=== PATIENT | female | born 1955 | race Caucasian/White ===

== ENCOUNTER 2019-03-11 05:39 | Outpatient (CLI) | payer BC ==
[~2019-03-11] VITALS: Ht 175.3 cm; Wt 76.2 kg
== END 2019-03-11 10:42 | disposition home or self-care (01) ==
LOC: PREOP 05:39
PROVIDERS: ATTEND Surgery
DX: Z01.818 Encounter for other preprocedural examination (principal)

== ENCOUNTER 2019-03-19 07:04 | Day surgery (SDC) | payer BC ==
[2019-03-19] VITALS (11 sets, daily range): BP systolic 132–165; BP diastolic 69–97
[~2019-03-19] VITALS: Ht 175.3 cm; Wt 78.3 kg
[2019-03-19] MEDS ORDERED: ceFAZolin 2 GM/50 ML NS 50 ML IV ONE (07:30)
[2019-03-19] MEDS ORDERED: proPOfol 200 MG/20 ML (DIPRIVAN) VIAL IV ONE (07:35)
[2019-03-19] MEDS ORDERED: ONDANSETRON 4 MG/2 ML (SDV) Z0FRAN ONE (07:35)
[2019-03-19] MEDS ORDERED: LIDOCAINE PF 2% 5 ML (XYLOCAINE) VIAL ONE (07:35)
[2019-03-19] MEDS ORDERED: ROCURONIUM 10 MG/ML 5 ML SYRINGE IV ONE (07:35)
[2019-03-19] MEDS ORDERED: fentaNYL INJECTION 100 MCG/2 ML AMP ONE (07:36)
[2019-03-19] MEDS ORDERED: MIDAZOLAM 2 MG/2 ML (VERSED) VIAL ONE (07:36)
[2019-03-19] MEDS ORDERED: SEVOFLURANE (ULTANE) 15 ML INHAL SOLN ONE ×5 (07:40→10:10)
[2019-03-19] MEDS ORDERED: BUP/EPI 0.5% 1:200,000 (SENSORCAINE) 30 ML VIAL ONE (07:43)
[2019-03-19] MEDS ORDERED: CATHETER FLUSH 10 ML SYR IV PRN (08:00)
[2019-03-19] MEDS: LACTATED RINGERS 1,000 ML IV PRN ×2 (08:10→09:45)
[2019-03-19 08:25] LABS: BASOPHILS % (AUTO) 1 % (0-10); EOSINOPHILS # (AUTO) 0.1 10^3/uL (0.0-0.3); EOSINOPHILS % (AUTO) 1 % (0-10); HEMATOCRIT 41 % (35-52); HEMOGLOBIN 13.9 G/DL (11.5-16.0); LYMPHOCYTES % (AUTO) 18 % (12-44); MEAN CORPUSCULAR HEMOGLOBIN 33 PG (25-34); MEAN CORPUSCULAR HGB CONC 34 G/DL (32-36); MEAN CORPUSCULAR VOLUME 97 FL (80-99); MEAN PLATELET VOLUME 11.5 FL (7.4-10.4); MONOCYTES # (AUTO) 0.6 X 10^3 (0.0-1.0); MONOCYTES % (AUTO) 12 % (0-12); NEUTROPHILS # (AUTO) 3.7 X 10^3 (1.8-7.8); NEUTROPHILS % (AUTO) 69 % (42-75); PLATELET COUNT 234 10^3/uL (130-400); RED CELL DISTRIBUTION WIDTH 13.3 % (10.0-14.5); WHITE BLOOD COUNT 5.4 10^3/uL (4.3-11.0)
--- NOTE | 2019-03-19 08:33 | Progress Note-Pre Operative ---
Pre-Operative Progress Note H&P Reviewed The H&P was reviewed, patient examined and no changes noted. Date Seen by Provider: March 19, 2019 Time Seen by Provider: 08:30 Date H&P Reviewed: March 19, 2019 Time H&P Reviewed: 08:25 Pre-Operative Diagnosis: Symptomatic left inguinal and Umbilical hernia DIPAK CHRISTIANSON APRN March 19, 2019 08:33
[2019-03-19] MEDS ORDERED: HYDR-3816 PO (08:36)
--- NOTE | 2019-03-19 08:36 | Discharge Inst-Surgical ---
D/C Lap Instructions-KIDO New, Converted, or Re-Newed RX: RX on Chart Follow Up Appt in 2 weeks Activity as tolerated No driving for 24 hours No driving while on pain medications Incentive Spirometry use every 2 hours while awake Regular Diet Symptoms to Report: Fever over 101 degree F, Nausea/Vomiting Infection Signs and Symptoms to report: Increased redness, Foul odor of wound, Increased drainage Bathing instructions: May shower Operative Area Clean/Dry; Keep incision clean/dry If any problems/questions: Contact your physician or go to Emergency Room DIPAK CHRISTIANSON APRN March 19, 2019 08:36
[2019-03-19] MEDS ORDERED: ACETAMINOPHEN 325 MG TABLET PO PRN (08:45)
[2019-03-19] MEDS ORDERED: morphine INJ 10 MG/ML 1ML (SYR OR VIAL) IVP PRN (08:45)
[2019-03-19] MEDS ORDERED: HYDROcodone/APAP 5 MG/325 MG (LORTAB) TAB PO ONE (08:45)
[2019-03-19] MEDS ORDERED: ONDANSETRON 4 MG/2 ML (SDV) Z0FRAN IVP PRN ×2 (08:45→10:30)
[2019-03-19] MEDS ORDERED: DEXAMETHASONE 10 MG/ML (DECADRON) 1 ML VIAL ONE (08:56)
[2019-03-19] MEDS ORDERED: GLYCOPYRROLATE 0.2 MG/ML (ROBINUL) 2 ML VIAL ONE (09:57)
[2019-03-19] MEDS ORDERED: NEOSTIGMINE 1 MG/ML 5 ML SYRINGE ONE (09:57)
--- NOTE | 2019-03-19 10:08 | Progress Note-Post Operative ---
Post-Operative Progess Note Surgeon (s)/Professional System Administrator (s) Surgeon PRIETO GOODE MD Professional System Administrator: cristina mays ADVERTISING ASSISTANT MANAGER Pre-Operative Diagnosis Symptomatic left inguinal and Umbilical hernia Post-Operative Diagnosis same(reducible) Procedure & Operative Findings Date of Procedure 03/19/19 Procedure Performed/Findings laparoscopic left inguinal and umbilical hernia repair with mesh. Anesthesia Type GET Estimated Blood Loss Estimated blood loss (mL): minimal Specimens/Packing Specimens Removed none PRIETO GOODE MD March 19, 2019 10:08
[2019-03-19] MEDS ORDERED: KETOROLAC 30 MG/ML VIAL ONE (10:27)
[2019-03-19] MEDS ORDERED: MEPERIDINE (DEMEROL) INJ 50 MG/ML IVP ONE (10:30)
[2019-03-19] MEDS ORDERED: PROMETHAZINE INJ 25 MG/ML (PHENERGAN) AMP IVP ONE (10:30)
[2019-03-19] MEDS ORDERED: morphine INJ 10 MG/ML 1ML (SYR OR VIAL) IVP ONE (10:30)
[2019-03-19] MEDS ORDERED: HYDROmorphone 2 MG/ML VIAL (DILAUDID) IV ONE (10:30)
[2019-03-19] MEDS ORDERED: KETOROLAC 30 MG/ML VIAL IVP ONE (10:45)
--- NOTE | 2019-03-19 13:22 | OPERATIVE REPORT ---
DATE OF SERVICE: 03/19/2019 PREOPERATIVE DIAGNOSES: Symptomatic reducible left inguinal hernia and umbilical hernia. POSTOPERATIVE DIAGNOSES: Symptomatic reducible left inguinal hernia and umbilical hernia. PROCEDURES: Laparoscopic left inguinal and umbilical hernia repair with mesh. SURGEON: Prieto Goode MD TECHNICAL SOLUTIONS DIRECTOR: Sanchez Patel APRN. ANESTHESIA: General endotracheal. ESTIMATED BLOOD LOSS: Minimal. FINDINGS: Reducible left direct inguinal hernia, small umbilical hernia, no right inguinal hernia component. DISPOSITION: The patient tolerated the procedure well. INDICATIONS: The patient is a 63-year-old female with two symptomatic lesions. She has had a left inguinal hernia for greater than two years, which was initially tolerable; however, over the time has grown larger in size and become more painful. She has also developed pain in the umbilical region. A CT scan was performed, which did show a small umbilical hernia. She states that this has also become more painful over time. She is otherwise doing well and having normal bowel movements and tolerating a regular diet. DESCRIPTION OF PROCEDURE: The patient was brought to the operating room, laid supine on the table. After adequate IV pain and sedative medications and general endotracheal intubation, the abdomen was prepped and draped in standard surgical fashion. A 0.5% Marcaine with epinephrine was used to anesthetize the overlying skin in the infraumbilical rim and a crescent shaped skin incision was made using 15 blade. The abdominal wall was retracted anteriorly using a sharp towel clamp and Veress needle was placed through the hernia defect with a low opening pressure of 0 mmHg and the abdomen was insufflated to 15 mmHg pressure. The Veress needle was removed and a 10 mm Xcel trocar was placed followed by a 10 mm 45-degree angle laparoscope visualizing the peritoneal cavity. A 4-quadrant abdominal exploration was performed. There was a left indirect inguinal hernia with only fat within the hernia sac. There was no right inguinal hernia component. What was visualized, the omentum, small bowel and colon were normal. Under direct visualization, we then proceeded to place bilateral 5 mm ports under direct visualization after the skin and peritoneal lining were anesthetized using 0.5% Marcaine with epinephrine and transverse skin incision was made using a 15 blade. The patient was then placed in Trendelenburg position and the omental lining was then opened starting laterally towards the conjoint tendon and inguinal ligament using a Sonicision. We then proceeded medially towards the conjoint tendon. We then proceeded with inferior dissection encompassing the hernia sac. The vasculature was identified and preserved. Good hemostasis was observed and a 3DMax polypropylene mesh was placed into the defect and tacked to Demar's ligament medially and the conjoint tendon and inguinal ligament laterally. The peritoneal lining was then placed entirely over the mesh and a few absorbable tacks placed to keep this in place. The 10 mm port was removed and a 5 mm camera was then placed through one of the 5 mm ports. The preperitoneal fat around the umbilical hernia was then dissected using a Sonicision. A medium size 6.4 cm diameter coated polypropylene mesh was then placed through the defect opening under direct visualization. The hernia defect was only approximately 1.5 cm in size. We then proceeded to place transfascial sutures concentrically around the mesh using 0 Prolene sutures. Good hemostasis was observed. Subcutaneous tissue was then reapproximated using 3-0 Vicryl interrupted sutures and the abdomen was desufflated and remaining ports removed. All skin incisions were closed using 4-0 Monocryl running subcuticular sutures. Wounds were then cleaned and covered with Dermabond. The patient tolerated the procedure well. We will start IV and oral pain medication as well as a clear liquid diet. Once she is tolerating clears and has good pain control with oral pain medications, ambulating well, we will discharge her home. Job ID: [id number] DocumentID: [id number] Dictated Date: 03/19/2019 10:23:04 Office Executive Date: 03/19/2019 13:21:26 Dictated By: PRIETO GOODE MD
--- NOTE | 2019-03-19 16:25 | Anesthesia-General Post-Op ---
General Patient Condition Mental Status/LOC: Same as Preop Cardiovascular: Satisfactory Nausea/Vomiting: Absent Respiratory: Satisfactory Pain: Controlled Complications: Absent Post Op Complications Complications None Follow Up Care/Instructions Patient Instructions None needed. Anesthesia/Patient Condition Patient Condition Patient was seen after the procedure this morning and she was doing well, no complaints, stable vital signs, no apparent adverse anesthesia problems. DOMINIC ELKINS DO March 19, 2019 16:25
== END 2019-03-19 12:30 | disposition home or self-care (01) ==
LOC: SDC 07:04
PROVIDERS: ATTEND Surgery
DX: K40.90 Unilateral inguinal hernia, without obstruction or gangrene, not specified as recurrent (principal); K42.0 Umbilical hernia with obstruction, without gangrene; Z87.891 Personal history of nicotine dependence
CPT/HCPCS: 36415; 85025; 87081; 94664

== ENCOUNTER 2022-02-15 16:36 | Emergency (ER) | payer BC, MEDICARE ==
[~2022-02-15] VITALS: Ht 175 cm; Wt 76.0 kg
[~2022-02-15 16:36] MED LIST: HYDR-34 PO
--- NOTE | 2022-02-15 17:00 | ED GI ---
General Chief Complaint: Abdominal/GI Problems Stated Complaint: PAIN,BLOATING Nursing Triage Note: PT STATES ABD PAIN AND BLOATING FOR A FEW WEEKS, HERNIA SURGERY A FEW YEARS AGO. DX WITH SHINGLES YESTERDAY. NORMAL BM TODAY, NO URINARY ISSUES, EATING WELL. Source of Information: Patient Exam Limitations: No Limitations History of Present Illness Date Seen by Provider: Feb 15, 2022 Time Seen by Provider: 16:58 Initial Comments n To ER by private vehicle with reports of abdominal pain and bloating for a few weeks. She had a umbilical and left inguinal hernia repair done here by Dr. GOODE about 3 years ago. The past couple of weeks she is had some right-sided periumbilical swelling and tenderness underneath the right rib cage. She was seen at [facility] yesterday at the walk-in clinic. She was diagnosed w ith herpes zoster of the right side of the abdominal wall, she was given acyclovir. She was offered prednisone and hydrocodone for pain but declined as she states that she does not like to take any medications. She states she does not really have a doctor. Normal bowel movements normal appetite no vomiting no fevers. Timing/Duration: Getting Worse, Intermittent Severity/Quality: Moderate Location: RUQ, RLQ, Periumbilical Radiation: No Radiation Activities at Onset: None Allergies and Home Medications Allergies Coded Allergies: No Known Drug Allergies (Unverified , 03/11/19) Patient Home Medication List Home Medication List Reviewed: Yes Hydrocodone Bit/Acetaminophen (HYDROcodone/APAP 7.5/325 TAB) 1 Each Tablet, 1-2 TAB PO Q4H Prescribed by: DIPAK CHRISTIANSON on 03/19/19 0836 Review of Systems Review of Systems Constitutional: see HPI EENTM: No Symptoms Reported Respiratory: No Symptoms Reported Cardiovascular: No Symptoms Reported Gastrointestinal: See HPI, Abdominal Pain Genitourinary: No Symptoms Reported Musculoskeletal: no symptoms reported Skin: see HPI, lesions, rash, other (There is a herpes zoster appearing rash to the right side of the torso that extends from the right flank around the same dermatome to the right anterior abdomen. This is a small cluster of bright red erythematous papules/vesicles that is tender to touch. However she does have notable bulging of the abdominal wall at the right periumbilical location.) Psychiatric/Neurological: No Symptoms Reported Endocrine: No Symptoms Reported Hematologic/Lymphatic: No Symptoms Reported Past Rtukfda-Mrfhpo-Jywlbp Hx Patient Social History Tobacco Use?: Yes Tobacco type used: Cigarettes Smoking Status: Former Smoker Substance use?: No Alcohol Use?: No Immunizations Up To Date Tetanus Booster (TDap): Unknown PED Vaccines UTD: No Seasonal Allergies Seasonal Allergies: Yes Past Medical History Surgery/Hospitalization HX: HERNIA Surgeries: No Respiratory: No Cardiac: No ("HEART FLUTTERING") Neurological: No Sexually Transmitted Disease: No HIV/AIDS: No Genitourinary: No Gastrointestinal: No Musculoskeletal: Yes Back Injury, Chronic Back Pain Endocrine: No HEENT: Yes (GLASSES) Loss of Vision: Bilateral Hearing Impairment: Denies Cancer: Yes (PRE-CANCEROUS CERVIX) Psychosocial: Yes Anxiety Integumentary: No Blood Disorders: No Adverse Reaction/Blood Tranf: No (N/A) Physical Exam Vital Signs Vital Signs - First Documented 02/15/22 16:43 Temp 36.6 Pulse 85 Resp 20 B/P (MAP) 198/125 (149) Pulse Ox 98 O2 Delivery Room Air Capillary Refill : Less Than 3 Seconds Height/Weight/BMI Height: 5'9.00" Weight: 172lbs. 9.0oz. 78.787480ci; 24.00 BMI Method: General Appearance: WD/WN, no apparent distress HEENT: PERRL/EOMI, normal ENT inspection Neck: non-tender, full range of motion Respiratory: no respiratory distress, no accessory muscle use Gastrointestinal: normal bowel sounds, soft, tenderness (Minimal tenderness at the defect, significant tenderness over the erythematous vesicles.) Neurologic/Psychiatric: alert, normal mood/affect, oriented x 3 Skin: normal color, warm/dry, other (Clustered erythematous vesicles/papules about the right flank wrapping around to the right anterior abdomen tender to touch does not cross midline. There is a palpable defect in the abdominal wall at the right supraumbilical region. Overlying skin is normal. Bowel sounds are normal.) Progress/Results/Core Measures Results/Orders Lab Results Laboratory Tests Test 02/15/22 16:55 02/15/22 17:26 Range/Units White Blood Count 6.2 4.3-11.0 10^3/uL Red Blood Count 4.35 3.80-5.11 10^6/uL Hemoglobin 14.3 11.5-16.0 g/dL Hematocrit 43 35-52 % Mean Corpuscular Volume 100 H 80-99 fL Mean Corpuscular Hemoglobin 33 25-34 pg Mean Corpuscular Hemoglobin Concent 33 32-36 g/dL Red Cell Distribution Width 13.2 10.0-14.5 % Platelet Count 235 130-400 10^3/uL Mean Platelet Volume 11.7 9.0-12.2 fL Immature Granulocyte % (Auto) 0 % Neutrophils (%) (Auto) 63 42-75 % Lymphocytes (%) (Auto) 23 12-44 % Monocytes (%) (Auto) 12 0-12 % Eosinophils (%) (Auto) 1 0-10 % Basophils (%) (Auto) 1 0-10 % Neutrophils # (Auto) 3.9 1.8-7.8 10^3/uL Lymphocytes # (Auto) 1.4 1.0-4.0 10^3/uL Monocytes # (Auto) 0.7 0.0-1.0 10^3/uL Eosinophils # (Auto) 0.1 0.0-0.3 10^3/uL Basophils # (Auto) 0.1 0.0-0.1 10^3/uL Immature Granulocyte # (Auto) 0.0 0.0-0.1 10^3/uL Sodium Level 142 135-145 MMOL/L Potassium Level 4.1 3.6-5.0 MMOL/L Chloride Level 107 98-107 MMOL/L Carbon Dioxide Level 24 21-32 MMOL/L Anion Gap 11 5-14 MMOL/L Blood Urea Nitrogen 13 7-18 MG/DL Creatinine 0.92 0.60-1.30 MG/DL Estimat Glomerular Filtration Rate 69 BUN/Creatinine Ratio 14 Glucose Level 94 70-105 MG/DL Calcium Level 9.9 8.5-10.1 MG/DL Corrected Calcium 9.7 8.5-10.1 MG/DL Total Bilirubin 0.4 0.1-1.0 MG/DL Aspartate Amino Transf (AST/SGOT) 18 5-34 U/L Alanine Aminotransferase (ALT/SGPT) 19 0-55 U/L Alkaline Phosphatase 66 40-136 U/L Total Protein 7.1 6.4-8.2 GM/DL Albumin 4.3 3.2-4.5 GM/DL Lipase 45 8-78 U/L Urine Color YELLOW Urine Clarity CLEAR Urine pH 7.0 5-9 Urine Specific [place] 1.015 L 1.016-1.022 Urine Protein NEGATIVE NEGATIVE Urine Glucose (UA) NEGATIVE NEGATIVE Urine Ketones NEGATIVE NEGATIVE Urine Nitrite NEGATIVE NEGATIVE Urine Bilirubin NEGATIVE NEGATIVE Urine Urobilinogen 0.2 < = 1.0 MG/DL Urine Leukocyte Esterase 1+ H NEGATIVE Urine RBC (Auto) NEGATIVE NEGATIVE Urine RBC NONE /HPF Urine WBC 2-5 /HPF Urine Squamous Epithelial Cells 0-2 /HPF Urine Crystals NONE /LPF Urine Bacteria MODERATE H /HPF Urine Casts NONE /LPF Urine Mucus NEGATIVE /LPF Urine Culture Indicated YES My Orders Orders - SELMA RUBI ELECTRICIAN SHIP Lipase (02/15/22 16:56) Ua Culture If Indicated (02/15/22 16:56) Cbc With Automated Diff (02/15/22 16:56) Comprehensive Metabolic Panel (02/15/22 16:56) Ed Iv/Invasive Line Start (02/15/22 16:56) Ct Abdomen/Pelvis W (02/15/22 16:56) Iohexol Injection (Omnipaque 350 Mg/Ml 1 (02/15/22 17:30) Received Contrast (Hold Metformin- Contr (02/15/22 17:30) Sodium Chloride Flush (Catheter Flush Sy (02/15/22 17:30) Ns (Ivpb) (Sodium Chloride 0.9% Ivpb Bag (02/15/22 17:30) Urine Culture (02/15/22 17:26) Medications Given in ED Current Medications Medications Dose Ordered Sig/Varun Route Start Time Stop Time Status Last Admin Dose Admin Iohexol 100 ml ONCE ONCE IV 02/15/22 17:30 02/15/22 17:31 DC 02/15/22 17:53 97 ML Sodium Chloride 10 ml NEEDED PRN IV 02/15/22 17:30 02/15/22 17:53 10 ML Sodium Chloride 100 ml ONCE ONCE IV 02/15/22 17:30 02/15/22 17:31 DC 02/15/22 17:53 80 ML Vital Signs/I&O 02/15/22 16:43 Temp 36.6 Pulse 85 Resp 20 B/P (MAP) 198/125 (149) Pulse Ox 98 O2 Delivery Room Air Blood Pressure Mean: 149 Departure Communication (Admissions) Family Conversation NAME: KRISTEL DALEY [facility] REC#: [id number] PT STATUS: REG ER : 1955 PHYSICIAN: SELMA RUBI ELECTRICIAN [employer] ADMIT DATE: 02/15/22/ER Signed Date of Exam:02/15/22 CT ABDOMEN/PELVIS W PROCEDURE: CT abdomen and pelvis with contrast. TECHNIQUE: Multiple contiguous axial images were obtained through the abdomen and pelvis after administration of intravenous contrast. Auto Exposure Controls were utilized during the CT exam to meet ALARA standards for radiation dose reduction. All CT scans use one or more of the following dose optimizing techniques: automated exposure control, MA and/or KvP adjustment based on patient size and exam type or iterative reconstruction. INDICATION: Periumbilical swelling. FINDINGS: The heart size is normal. The lung bases are clear. There is a benign cyst in the liver. Gallbladder is unremarkable. There is no biliary ductal dilatation. Spleen is normal. The pancreas and adrenal glands are unremarkable. Kidneys are normal in appearance. Aorta is nonaneurysmal. There is a midline anterior abdominal wall hernia containing some omental fat. The bowel gas pattern is nonspecific. There is no free air. There is no ascites. There is no focal inflammatory changes. Bladder is normal. There is no pelvic mass, adenopathy or free fluid. There are degenerative changes in the spine. There is a chronic appearing L1 compression fracture. IMPRESSION: 1. Benign hepatic cyst. 2. Midline anterior abdominal wall hernia containing some omental fat. 3. Chronic appearing L1 compression fracture. If there is clinical concern that this may be acute, further evaluation with MRI should be considered. 4. No other acute abnormality in the abdomen or pelvis. Dictated by: Dictated on workstation # [id number] Dict: 02/15/221758 Trans: 02/15/221805 [facility] [id number] Interpreted by: PARRISH REEVES MD Electronically signed by: PARRISH REEVES MD 02/15/221805 I did again offer her pain medicine for the shingles here as well as a prescription for prednisone to help reduce the possibility of developing p ostherpetic neuralgia. She again states that she does not like medications and wants nothing more than the acyclovir. 185-she is still hypertensive at about 185 or 91. She is anxious about this does not have a primary care provider. We will start her on some lisinopril 20 mg. Impression Primary Impression: Umbilical hernia Additional Impressions: Shingles Hypertension Disposition: HOME, SELF-CARE Condition: Stable Departure-Patient Inst. Decision time for Depature: 18:24 Referrals: [facility] [place] (PCP/Family) Primary Care Physician CARLOS WESTON BRETT D DO KIDO, TAKAAKI MD Patient Instructions: Abdominal Wall Hernias, Shingles (DC), Medicines for High Blood Pressure Add. Discharge Instructions: 1. Call a surgeon of your choosing later next week to discuss surgical repair of the umbilical hernia. Continue the acyclovir for the shingles. Return to ER for any concerns. Scripts Lisinopril (Lisinopril) 20 Mg Tablet 20 MG PO DAILY, #30 TAB Prov: SELMA RUBI APRN 02/15/22 SELMA RUBI APRN Feb 15, 2022 17:00
[2022-02-15 17:12] LABS: BASOPHILS # (AUTO) 0.1 10^3/uL (0.0-0.1); BASOPHILS % (AUTO) 1 % (0-10); EOSINOPHILS # (AUTO) 0.1 10^3/uL (0.0-0.3); EOSINOPHILS % (AUTO) 1 % (0-10); HEMATOCRIT 43 % (35-52); HEMOGLOBIN 14.3 g/dL (11.5-16.0); LYMPHOCYTES # (AUTO) 1.4 10^3/uL (1.0-4.0); LYMPHOCYTES % (AUTO) 23 % (12-44); MEAN CORPUSCULAR HEMOGLOBIN 33 pg (25-34); MEAN CORPUSCULAR HGB CONC 33 g/dL (32-36); MEAN CORPUSCULAR VOLUME 100 fL (80-99); MEAN PLATELET VOLUME 11.7 fL (9.0-12.2); MONOCYTES # (AUTO) 0.7 10^3/uL (0.0-1.0); MONOCYTES % (AUTO) 12 % (0-12); NEUTROPHILS # (AUTO) 3.9 10^3/uL (1.8-7.8); NEUTROPHILS % (AUTO) 63 % (42-75); PLATELET COUNT 235 10^3/uL (130-400); WHITE BLOOD COUNT 6.2 10^3/uL (4.3-11.0)
[2022-02-15 17:23] LABS: ALBUMIN 4.3 GM/DL (3.2-4.5); POTASSIUM 4.1 MMOL/L (3.6-5.0)
[2022-02-15 17:24] LABS: CALCIUM 9.9 MG/DL (8.5-10.1)
[2022-02-15 17:25] LABS: TOTAL PROTEIN 7.1 GM/DL (6.4-8.2)
[2022-02-15 17:27] LABS: BILIRUBIN,TOTAL 0.4 MG/DL (0.1-1.0)
[2022-02-15 17:29] LABS: CREATININE SERUM 0.92 MG/DL (0.60-1.30)
[2022-02-15] MEDS ORDERED: IOHEXOL 350 MG/ML 100 ML (OMNIPAQUE 350) VIAL IV ONE (17:30)
[2022-02-15] MEDS ORDERED: HOLD METFORMIN - RECEIVED CONTRAST 20 ML VIAL IV SCH (17:30)
[2022-02-15] MEDS ORDERED: CATHETER FLUSH 10 ML SYR IV PRN (17:30)
[2022-02-15] MEDS ORDERED: NS 100 ML (IVPB) BAG IV ONE (17:30)
[2022-02-15 17:33] LABS: BILIRUBIN,URINE NEGATIVE (NEGATIVE); CLARITY,URINE CLEAR; COLOR,URINE YELLOW; GLUCOSE, URINE (UA) NEGATIVE (NEGATIVE); KETONES,URINE NEGATIVE (NEGATIVE); LEUKOCYTE ESTERASE ,URINE 1+ (NEGATIVE); NITRITE,URINE NEGATIVE (NEGATIVE); PROTEIN,URINE NEGATIVE (NEGATIVE)
[2022-02-15 17:46] LABS: BACTERIA,URINE MODERATE /HPF; SQUAMOUS EPITHELIAL CELL,UR 0-2 /HPF
--- NOTE | 2022-02-15 18:06 | Diagnostic Imaging Report ---
PROCEDURE: CT abdomen and pelvis with contrast. TECHNIQUE: Multiple contiguous axial images were obtained through the abdomen and pelvis after administration of intravenous contrast. Auto Exposure Controls were utilized during the CT exam to meet ALARA standards for radiation dose reduction. All CT scans use one or more of the following dose optimizing techniques: automated exposure control, MA and/or KvP adjustment based on patient size and exam type or iterative reconstruction. INDICATION: Periumbilical swelling. FINDINGS: The heart size is normal. The lung bases are clear. There is a benign cyst in the liver. Gallbladder is unremarkable. There is no biliary ductal dilatation. Spleen is normal. The pancreas and adrenal glands are unremarkable. Kidneys are normal in appearance. Aorta is nonaneurysmal. There is a midline anterior abdominal wall hernia containing some omental fat. The bowel gas pattern is nonspecific. There is no free air. There is no ascites. There is no focal inflammatory changes. Bladder is normal. There is no pelvic mass, adenopathy or free fluid. There are degenerative changes in the spine. There is a chronic appearing L1 compression fracture. IMPRESSION: 1. Benign hepatic cyst. 2. Midline anterior abdominal wall hernia containing some omental fat. 3. Chronic appearing L1 compression fracture. If there is clinical concern that this may be acute, further evaluation with MRI should be considered. 4. No other acute abnormality in the abdomen or pelvis. Dictated by: Dictated on workstation # [id number]
[2022-02-15] MEDS ORDERED: LISI20TA26 PO ×2 (18:50→19:01)
[2022-02-15] MEDS ORDERED: lisINopril 10 MG (PRINIVIL) TABLET ONE (18:52)
[2022-02-15] MEDS ORDERED: lisINopril 20 MG (PRINIVIL) TABLET PO ONE (19:00)
[2022-02-15 19:03] VITALS: BP 185/91
== END 2022-02-15 19:02 | disposition home or self-care (01) ==
LOC: EDUNIT# 16:36 → ER 16:39
DX: K42.9 Umbilical hernia without obstruction or gangrene (principal); I10 Essential (primary) hypertension; B02.9 Zoster without complications; Z87.891 Personal history of nicotine dependence
CPT/HCPCS: 36415; 74177; 80053; 81000; 83690; 85025; 87088

== ENCOUNTER 2022-02-16 08:09 | Emergency (ER) | payer MEDICARE ==
[~2022-02-16] VITALS: Ht 175 cm; Wt 79.0 kg
[~2022-02-16 08:09] MED LIST changes: +LISI20TA26 PO
[2022-02-16 08:15] VITALS: BP 183/108
--- NOTE | 2022-02-16 08:39 | ED Back Pain ---
General Chief Complaint: Back Problems Stated Complaint: BACK PAIN Nursing Triage Note: ARRIVED VIA AMB TO ROOM 06. WAS SEEN HERE LAST NIGHT FOR MULTIPLE ISSUES BUT TODAY COMES IN FOR CONT BACK PAIN. NO INJURY. Source of Information: Patient Exam Limitations: No Limitations History of Present Illness Date Seen by Provider: Feb 16, 2022 Time Seen by Provider: 08:28 Initial Comments Mrs. Woodard is a 66-year-old who presents to the emergency department with a chief complaint of deep achy discomfort in her right flank and back. She was seen in the emergency room last night diagnosed with hypertension and pain related to shingles. She has had shingles for the last 5 days. She was seen at [facility] and placed on an antiviral. She has not been taking anything for the shingles pain. She has been putting calamine lotion over the rash. She is concerned that something is "stabbing into an organ". Per review of the medical record the patient had laboratory studies plus a CAT scan of the abdomen pelvis done last evening. The only pertinent finding was a chronic appearing L1 compression fracture. She attributes this to an injury from 2013. She states she "does not like to take pills" therefore has not been taking anything for her longstanding back pain nor the pain related to the rash. I reassured her that there was no concerning findings for any intra-abdominal organ pathology. I reviewed her labs all of which were normal. I strongly encouraged her to take pain medications to help her be able to get some rest as she states she has been unable to sleep with the discomfort. She was started on lisinopril last evening. She is concerned about her high blood pressure. States she has not had a doctor for 65 years. No complaints of fevers, chest pain, shortness of breath, nausea. She does have chronic abdominal discomfort secondary to ventral hernia. All other review of systems reviewed and negative except as stated. Timing/Duration: 4-5 Days Severity: Severe Pain/Injury Location: Back (Right flank) Associated Symptoms: denies symptoms Allergies and Home Medications Allergies Coded Allergies: No Known Drug Allergies (Unverified , 03/11/19) Patient Home Medication List Home Medication List Reviewed: Yes Hydrocodone Bit/Acetaminophen (HYDROcodone/APAP 7.5/325 TAB) 1 Each Tablet, 1-2 TAB PO Q4H Prescribed by: DIPAK CHRISTIANSON on 03/19/19 0836 Lisinopril (Lisinopril) 20 Mg Tablet, 20 MG PO DAILY Prescribed by: SELMA RUBI on 02/15/22 190 Review of Systems Constitutional: see HPI EENTM: no symptoms reported Respiratory: no symptoms reported Cardiovascular: no symptoms reported Gastrointestinal: no symptoms reported Genitourinary: no symptoms reported Musculoskeletal: back pain Skin: rash All Other Systems Reviewed Negative Unless Noted: Yes Past Jmzthlk-Cvdafu-Hupxhr Hx Patient Social History Tobacco Use?: No Substance use?: No Alcohol Use?: No Immunizations Up To Date Tetanus Booster (TDap): Unknown PED Vaccines UTD: No Seasonal Allergies Seasonal Allergies: Yes Past Medical History Surgery/Hospitalization HX: HERNIA Surgeries: No Respiratory: No Cardiac: No ("HEART FLUTTERING") Neurological: No Sexually Transmitted Disease: No HIV/AIDS: No Genitourinary: No Gastrointestinal: No Musculoskeletal: Yes Back Injury, Chronic Back Pain Endocrine: No HEENT: Yes (GLASSES) Loss of Vision: Bilateral Hearing Impairment: Denies Cancer: Yes (PRE-CANCEROUS CERVIX) Psychosocial: Yes Anxiety Integumentary: No Blood Disorders: No Adverse Reaction/Blood Tranf: No (N/A) Physical Exam Vital Signs Vital Signs - First Documented 02/16/22 08:15 Temp 36.3 Pulse 91 Resp 16 B/P (MAP) 183/108 (133) Pulse Ox 97 O2 Delivery Room Air Capillary Refill : Less Than 3 Seconds Height, Weight, BMI Height: 5'9.00" Weight: 172lbs. 9.0oz. [id number]; 25.00 BMI Method: General Appearance: No Apparent Distress, WD/WN, Anxious Neck: Normal Inspection Cardiovascular: Regular Rate, Rhythm Respiratory: Lungs Clear, Normal Breath Sounds, No Accessory Muscle Use, No Respiratory Distress Gastrointestinal: Normal Bowel Sounds, Soft, Tenderness (Mild epigastric tenderness over the area of ventral hernia) Back: Normal Inspection, No Vertebral Tenderness Extremity: Normal Inspection, Normal Range of Motion Neurologic/Psychiatric: Alert, Oriented x3, Normal Mood/Affect Skin: Normal Color, Warm/Dry, Rash (Patient has extensive varicella-zoster rash extending from the lower T-spine and upper lumbar spine on the right wrapping around the right flank into the anterior abdomen. The area on the right flank/right back that she is complaining of pain coincides exactly with the rash. No secondary signs of infection) Progress/Results/Core Measures Results/Orders Vital Signs/I&O 02/16/22 08:15 Temp 36.3 Pulse 91 Resp 16 B/P (MAP) 183/108 (133) Pulse Ox 97 O2 Delivery Room Air Blood Pressure Mean: 133 Progress Progress Note : Time: 08:37 Progress Note Extensive discussion with the patient regarding treatment of pain. She is concerned about taking dfvv-zop-hnwwqty medications such as Tylenol, aspirin, Aleve, ibuprofen, Excedrin with a possible interaction of her new blood pressure medication. I reassured her that these medications are safe. I also strongly encouraged the use of lidocaine patches as the rash feels. I educated her that there are also lidocaine creams that may alleviate her symptoms. She is very apprehensive with her new diagnoses of hypertension. I advised her that I would give her a local physician referral list. I advised her to continue her lisinopril and reassured her that her kidney function is normal today. She is appreciative. Verbalized understanding of the plan of care. All questions are sought and answered Departure Impression Primary Impression: Acute herpes zoster neuropathy Additional Impression: High blood pressure Qualified Codes: I10 - Essential (primary) hypertension Disposition: 01 HOME, SELF-CARE Condition: Stable Departure-Patient Inst. Decision time for Depature: 08:41 Referrals: NO,LOCAL PHYSICIAN (PCP/Family) Primary Care Physician Patient Instructions: LOCAL PHYSICIAN LIST Add. Discharge Instructions: As long as the lesions on your rash are healing and crusting over you can use lidocaine creams, ointments, patches which are available zriv-egv-axwxdct. Please follow packaging instructions. It is completely safe to take nvlv-nhk-qdnaebb ibuprofen, 2 to 3 pills which is 400 to 600 mg every 6 hours with food as needed for pain. You can take in addition to ibuprofen ljqy-msa-wfwzvng extra strength Tylenol, 2 tablets which is 1000 mg every 6 hours. You do not need to take this medication with food. I have provided you with a local physician referral list to help find a local family doctor to help with your blood pressure management. Please come back to the emergency department for any fever, worsening rash, severe headache, chest pain or other emergent concerning symptoms. KRISTEL JON MD Feb 16, 2022 08:39
== END 2022-02-16 08:54 | disposition home or self-care (01) ==
LOC: EDUNIT# 08:09 → ER 08:11
DX: B02.23 Postherpetic polyneuropathy (principal); I10 Essential (primary) hypertension; Z79.899 Other long term (current) drug therapy
CPT/HCPCS: 99281

== ENCOUNTER 2022-03-21 06:11 | Outpatient (CLI) | payer MEDICARE ==
[~2022-03-21] VITALS: Ht 172 cm; Wt 76.4 kg
[2022-03-22] MEDS ORDERED: LISI40TA9 PO (13:32)
[2022-03-28] MEDS ORDERED: ACHD5005 PO (10:05)
== END 2022-03-22 13:48 | disposition home or self-care (01) ==
LOC: PREOP 06:11
PROVIDERS: ATTEND Surgery
DX: Z01.818 Encounter for other preprocedural examination (principal)

== ENCOUNTER → 2022-03-28 | Day surgery (SDC) | payer MEDICARE ==
[~2022-03-28] VITALS: Ht 172 cm; Wt 76.4 kg
[~2022-03-28] MED LIST changes: +ACHD5005 PO; +BUP/EPI 0.5% 1:200,000 (SENSORCAINE) 30 ML VIAL ONE; +GLYCOPYRROLATE 0.2 MG/ML (ROBINUL) 2 ML VIAL ONE; +HYDROcodone/APAP 5 MG/325 MG (LORTAB) TAB PO ONE; +HYDROmorphone 2 MG/ML VIAL (DILAUDID) IV ONE; +HYDROmorphone 2 MG/ML VIAL (DILAUDID) ONE; +KETOROLAC 30 MG/ML VIAL ONE; +LABETALOL HCL 20 MG/4 ML VIAL ONE; +LIDOCAINE PF 2% 5 ML (XYLOCAINE) VIAL ONE; +LISI40TA9 PO; +MIDAZOLAM 2 MG/2 ML (VERSED) VIAL ONE; +NEOSTIGMINE 3 MG/3 ML VIAL ONE; +ONDANSETRON 4 MG/2 ML (SDV) Z0FRAN IVP PRN; +ONDANSETRON 4 MG/2 ML (SDV) Z0FRAN ONE; +ROCURONIUM 50 MG/5 ML (ZEMURON) VIAL IV ONE; +SEVOFLURANE (ULTANE) 15 ML INHAL SOLN ONE; +ceFAZolin 2 GM IV Premixed 50 ML IV ONE; +ceFAZolin 2 GM IV Premixed 50 ML ONE; +fentaNYL INJ 100 MCG/2 ML AMP ONE; +proPOfol 200 MG/20 ML (DIPRIVAN) VIAL IV ONE
[2022-03-28] MEDS: LACTATED RINGERS 1,000 ML IV PRN ×2 (07:26→09:07)
[2022-03-28 07:52] VITALS: BP 163/100
--- NOTE | 2022-03-28 08:07 | Progress Note-Pre Operative ---
Pre-Operative Progress Note H&P Reviewed The H&P was reviewed, patient examined and no changes noted. Time Seen by Provider: 08:02 Date H&P Reviewed: Mar 28, 2022 Time H&P Reviewed: 08:02 Pre-Operative Diagnosis: Recurrent Incarcerated Incisional hernia CARLOS WESTON DO Mar 28, 2022 08:07
[2022-03-28 09:41] VITALS: BP 173/95
--- NOTE | 2022-03-28 09:43 | Progress Note-Post Operative ---
Post-Operative Progess Note Surgeon (s)/[employer] (s) Surgeon CARLOS WESTON DO [employer]: [place] Pre-Operative Diagnosis Recurrent Incarcerated Incisional hernia Post-Operative Diagnosis same Procedure & Operative Findings Date of Procedure 03/28/22 Procedure Performed/Findings PROCEDURE: 1) Laparoscopic Incisional/Ventral hernia repair with mesh 2) Removal of old mesh COMPLICATIONS: None. INDICATIONS: The patient is a 66, female with an recurrent incarcerated incisonal/ventral hernia, which has continued to increase in size and cause discomfort. The patient was explained the risk and benefits of the procedure and wished to proceed with the procedure. Consent was signed on the chart. DESCRIPTION OF PROCEDURE: The patient was taken into the operating suite, prepped and draped in sterile fashion. Surgical pause was performed. Local anesthetic was infiltrated in left upper quadrant. A #11 blade scalpel was used to make a small skin incision. Cautery was used to dissect down to the fascia, which was then scored and divided the muscle, went through the posterior sheath and a balloon trocar was inserted into the abdomen. The abdomen was then insufflated. An 8 mm trocar was placed in the leftt lower quadrant and another 8 mm trocar was placed about even with the umbilicus on the left side. The robot was then docked. There was omentum stuck up to the peritoneum and the old mesh. The omentum was carefully taken down with bovie cautery on the scissors and the fenestrated bipolar. Then carefully started to take off the old mesh. Once it was taken down then used an 0 prolene barbed stitch to close the hernia defect. Hernia defect was about 4cm x 3cm. Ran from the left side (grabbing a piece of hernia sac) to right and then back again. Defect closed nicely. Echo Ventralight mesh 10cm x 15cm was then inserted in the abdomen grabbed through the stab incision. The balloon was inflated on the mesh. A 5mm Versa-step port was placed on the right side of abdomen to help with tacking. Circumferential tacks were placed with a SecureStrap Tacker; used two to completely tack it up. The balloon was then removed and inner crown was created as well. The mesh was tacked with pressure being decreased. A bag was placed in the abdomen to take out the old mesh. The 12 mm fascial defect was then closed using 0 Vicryl. The abdomen was then susan ufflated,the trocars were removed. The skin was then closed using 4-0 Monocryl in a running subcuticular fashion. The abdomen was washed and dried and Skin Affix was placed over the incisions. The patient tolerated procedure well without any complications. She was taken to recovery room in stable condition. Dr. Greene assisted on this case helping to make incisions, close incisions, tack the mesh, identify anatomy and hold anatomy out of the way. Anesthesia Type GET Estimated Blood Loss Estimated blood loss (mL): scant Specimens/Packing Specimens Removed old hernia mesh CARLOS WESTON DO Mar 28, 2022 09:43
[2022-03-28 09:50] VITALS: BP 154/85
[2022-03-28 10:00] VITALS: BP 153/85
--- NOTE | 2022-03-28 10:06 | Discharge Inst-Surgical ---
Discharge Inst-Surgical Depart Medication/Instructions New, Converted or Re-Newed RX: Transmitted to Pharmacy Patient Instructions Follow up Appt: Make appointment for 1 week. [phone] Instructions: No lifting greater than 20 pounds. No strenuous activity. May shower in 24 hours, no tub bath or soaking. Use incentive spirometer at home as directed. No Smoking Skin/Wound Care: May remove bandages in am. You need to leave the Dermabond on incision it will fall off on it's own. Symptoms to Report: Appetite Changes, Extremity Discoloration, Numbness/Tingling, Swelling Increased, Bleeding Excessive, Eyesight Changes, Pain Increased, Urine Color Change, Constipation(Persistent), Fever over 101 degree F, Pain/Pressure in chest, Urinating Difficulty, Cough Up/Vomit Blood, Heart Beat Irreg/Pounding, Pain/Pressure in jaw, Cramps in feet or legs, Lightheadedness, Pain/Pressure in shoulder, Diarrhea(Persistent), Memory Changes Suddenly, Questions/Concerns, Weight gain consecutive days, Dizziness/Fainting, Nausea/Vomiting, Shortness of Breath, Weight gain over 2 pounds If questions or concerns contact your physician Or seek help at emergency department. Activity Activity as Tolerated: Yes Activity Instructions: Avoid Stress to Incision Driving Instructions: No Driving/Refer to Dr. Strickland Discharge Diet: No Restrictions Diet After 24 Hours: Clear Liquid if Nauseous If Any Problems/Questions/Issu: Contact Your Physician, Go to Emergency Room Skin/Wound Care Infection Signs and Symptoms: Increased Redness, Foul Odor of Wound, Increased Drainage, Skin Itchy or Has a Rash, Increased Swelling, Temperature Above 101 F Wound Care Comment: heating pad to shoulder or neck tonight for pain Bathing Instructions: Shower Stitches/[place]/Dermabond Dis: Dermabond Ice Pack: Ice On and Off Site CARLOS WESTON DO Mar 28, 2022 10:06
[2022-03-28 11:40] VITALS: BP 135/84
--- NOTE | 2022-03-28 14:55 | Anesthesia-General Post-Op ---
General Patient Condition Mental Status/LOC: Same as Preop Cardiovascular: Satisfactory Nausea/Vomiting: Absent Respiratory: Satisfactory Pain: Controlled Complications: Absent Post Op Complications Complications None Follow Up Care/Instructions Patient Instructions None needed. Anesthesia/Patient Condition Patient Condition Patient is doing well, no complaints, stable vital signs, no apparent adverse anesthesia problems. No complications reported per nursing. D/C home per [facility] Criteria: Yes MYAH FOSTER CRNA Mar 28, 2022 14:54
== END ==
LOC: SDC 06:59
PROVIDERS: ATTEND Surgery
DX: K43.0 Incisional hernia with obstruction, without gangrene (principal); Z87.891 Personal history of nicotine dependence
CPT/HCPCS: 49655; 87081; C1781

== ENCOUNTER → 2022-05-16 | Outpatient (CLI) | payer MEDICARE ==
[~2022-05-16] MED LIST changes: -BUP/EPI 0.5% 1:200,000 (SENSORCAINE) 30 ML VIAL ONE; -GLYCOPYRROLATE 0.2 MG/ML (ROBINUL) 2 ML VIAL ONE; -HYDROcodone/APAP 5 MG/325 MG (LORTAB) TAB PO ONE; -HYDROmorphone 2 MG/ML VIAL (DILAUDID) IV ONE; -HYDROmorphone 2 MG/ML VIAL (DILAUDID) ONE; -KETOROLAC 30 MG/ML VIAL ONE; -LABETALOL HCL 20 MG/4 ML VIAL ONE; -LIDOCAINE PF 2% 5 ML (XYLOCAINE) VIAL ONE; -MIDAZOLAM 2 MG/2 ML (VERSED) VIAL ONE; -NEOSTIGMINE 3 MG/3 ML VIAL ONE; -ONDANSETRON 4 MG/2 ML (SDV) Z0FRAN IVP PRN; -ONDANSETRON 4 MG/2 ML (SDV) Z0FRAN ONE; -ROCURONIUM 50 MG/5 ML (ZEMURON) VIAL IV ONE; -SEVOFLURANE (ULTANE) 15 ML INHAL SOLN ONE; -ceFAZolin 2 GM IV Premixed 50 ML IV ONE; -ceFAZolin 2 GM IV Premixed 50 ML ONE; -fentaNYL INJ 100 MCG/2 ML AMP ONE; -proPOfol 200 MG/20 ML (DIPRIVAN) VIAL IV ONE
== END | disposition home or self-care (01) ==
LOC: PREOP 05:28
PROVIDERS: ATTEND Obstetrics & Gynecology
DX: Z01.818 Encounter for other preprocedural examination (principal)

== ENCOUNTER → 2022-06-04 | Outpatient (CLI) | payer MEDICARE ==
[~2022-06-04] MED LIST changes: +CATHETER FLUSH 10 ML SYR IV PRN; +HOLD METFORMIN - RECEIVED CONTRAST 20 ML VIAL IV SCH; +IOHEXOL 350 MG/ML 100 ML (OMNIPAQUE 350) VIAL IV ONE; +NS 100 ML (IVPB) BAG IV ONE
[2022-06-04 08:49] LABS: CREATININE SERUM 0.81 MG/DL (0.60-1.30)
--- NOTE | 2022-06-04 12:22 | Diagnostic Imaging Report ---
PROCEDURE: CT abdomen and pelvis with and without contrast. TECHNIQUE: Precontrast acquisitions were acquired through the abdomen and pelvis. Multiple contiguous axial images were obtained through the abdomen and pelvis after the administration of intravenous contrast. Auto Exposure Controls were utilized during the CT exam to meet ALARA standards for radiation dose reduction. INDICATION: Abdominal pain. COMPARISON: 02/15/2022 FINDINGS: Lower chest: The lung bases are clear. No pericardial or pleural effusion. Peritoneum: No free intraperitoneal air or fluid. Liver and biliary system: Stable hemangioma in the left hepatic lobe. No concerning focal hepatic lesion. The gallbladder is normal. No biliary duct dilation. Spleen and Pancreas: Spleen is normal. The pancreas enhances normally without mass lesion or peripancreatic inflammatory changes. Adrenals: Normal. tract: The kidneys enhance normally without suspicious mass or obstruction. Simple subcentimeter cysts in the anterior mid left kidney is benign and requires no dedicated followup imaging. Urinary bladder is distended without wall thickening. Uterus and ovaries are unremarkable. GI tract: Stomach is decompressed. No bowel obstruction. No pericolonic inflammatory changes. Normal appendix. Vasculature and Lymph nodes: Normal caliber aorta. No abdominal or pelvic lymphadenopathy. Musculoskeletal: No concerning osseous lesion. Prior umbilical hernia repair. No recurrent hernia. No new abdominal, pelvic or inguinal hernia. Chronic superior height loss of L1. IMPRESSION: 1. No recurrent abdominal hernia status post umbilical hernia repair. 2. No acute intra-abdominal abnormality. Dictated by: Dictated on workstation # [id number]
== END ==
LOC: RAD 09:45
PROVIDERS: ATTEND Obstetrics & Gynecology
DX: R10.9 Unspecified abdominal pain (principal); Z98.890 Other specified postprocedural states
CPT/HCPCS: 36415; 74178; 82565; 84520

== ENCOUNTER 2022-06-11 05:38 | Outpatient (CLI) | payer MEDICARE ==
[~2022-06-11] VITALS: Ht 175 cm; Wt 81.2 kg
[~2022-06-11 05:38] MED LIST changes: -CATHETER FLUSH 10 ML SYR IV PRN; -HOLD METFORMIN - RECEIVED CONTRAST 20 ML VIAL IV SCH; -IOHEXOL 350 MG/ML 100 ML (OMNIPAQUE 350) VIAL IV ONE; -NS 100 ML (IVPB) BAG IV ONE
--- NOTE | 2022-06-13 16:43 | Discharge Inst-Surgical ---
Discharge Inst-Surgical Depart Medication/Instructions New, Converted or Re-Newed RX: Transmitted to Pharmacy Consults/Follow Up Patient Instructions: As directed Orders & Referrals Follow Up Appt: Call to make follow up appt. for patient in 2 weeks. Activity: Rest for 24 hours, than as tolerated. Diet: As tolerated Shower or tub bathe as desired. No driving for 24 hours, no alcoholic beverages for 24 hours, and nothing per vagina (no tampons, douching, or intercourse) for 2 weeks. Patient to return to the clinic as soon as possible for: Temperature greater than 101F, Severe Pain, Foul discharge from incision or vagina, Excessive Bleeding (more than a period). Activity Activity as Tolerated: No Diet Discharge Diet: No Restrictions SHELTON NAIR MD Jun 13, 2022 16:43
--- NOTE | 2022-06-13 16:46 | Progress Note-Pre Operative ---
Pre-Operative Progress Note Date of Available H&P: Jun 14, 2022 Date H&P Reviewed: Jun 14, 2022 Time H&P Reviewed: 07:22 History & Physical: H&P Reviewed, Patient Examed, No changes noted Changes from last HP none Pre-Operative Diagnosis: Vulvovaginal hemangioma SHELTON NAIR MD Jun 13, 2022 16:46
--- NOTE | 2022-06-13 16:47 | Progress Note-Post Operative ---
Post-Operative Progess Note Surgeon (s)/Residential Appraiser (s) Surgeon SHELTON NAIR MD Residential Appraiser: None Pre-Operative Diagnosis Vulvovaginal hemangioma Post-Operative Diagnosis same with pathology pending Procedure & Operative Findings Date of Procedure 06/14/22 Procedure Performed/Findings Partial vaginectomy And partial vulvectomy for excision of vulvovaginal hemangioma And vulvar nodular lesion Anesthesia Type MAC Augmented with local analgesia Estimated Blood Loss Estimated blood loss (mL): 50 to 70 cc Specimens/Packing Specimens Removed Partial Right vaginal wall with cystic mass Portion of right labia majora with nodular mass SHELTON NAIR MD Jun 13, 2022 16:47
[2022-06-13] MEDS ORDERED: OXYC-199 PO (16:48)
== END 2022-06-11 16:49 ==
LOC: PREOP 05:38
PROVIDERS: ATTEND Obstetrics & Gynecology
DX: Z01.818 Encounter for other preprocedural examination (principal); D18.09 Hemangioma of other sites

== ENCOUNTER 2022-06-14 06:14 | Day surgery (SDC) | payer MEDICARE ==
[2022-06-14] VITALS (7 sets, daily range): BP systolic 114–167; BP diastolic 73–100
[~2022-06-14] VITALS: Ht 175 cm; Wt 81.2 kg
[~2022-06-14 06:14] MED LIST changes: +OXYC-199 PO
[2022-06-14] MEDS ORDERED: fentaNYL INJ 100 MCG/2 ML AMP IVP PRN (06:30)
[2022-06-14] MEDS ORDERED: LACTATED RINGERS 1,000 ML IV PRN (06:30)
[2022-06-14] MEDS ORDERED: D5 LR IV SOLUTION 1,000 ML IV SCH (06:30)
[2022-06-14] MEDS ORDERED: oxyCODONE/APAP 5/325MG (PERCOCET 5) TABLET PO PRN (06:30)
[2022-06-14] MEDS ORDERED: ceFAZolin INJECTION 1,000 MG VIAL IV ONE (06:30)
[2022-06-14] MEDS ORDERED: ONDANSETRON 4 MG/2 ML (SDV) Z0FRAN IVP PRN ×2 (06:30→08:15)
[2022-06-14] MEDS ORDERED: KETOROLAC 30 MG/ML VIAL IVP ONE (06:30)
[2022-06-14] MEDS ORDERED: PROPOFOL INJECTION 50 ML IV ONE (07:15)
[2022-06-14 07:16] LABS: BASOPHILS % (AUTO) 1 % (0-10); EOSINOPHILS # (AUTO) 0.1 10^3/uL (0.0-0.3); EOSINOPHILS % (AUTO) 1 % (0-10); HEMATOCRIT 39 % (35-52); LYMPHOCYTES # (AUTO) 1.2 10^3/uL (1.0-4.0); LYMPHOCYTES % (AUTO) 19 % (12-44); MEAN CORPUSCULAR HEMOGLOBIN 33 pg (25-34); MEAN CORPUSCULAR HGB CONC 33 g/dL (32-36); MEAN CORPUSCULAR VOLUME 99 fL (80-99); MEAN PLATELET VOLUME 12.2 fL (9.0-12.2); MONOCYTES # (AUTO) 0.5 10^3/uL (0.0-1.0); MONOCYTES % (AUTO) 8 % (0-12); NEUTROPHILS # (AUTO) 4.8 10^3/uL (1.8-7.8); NEUTROPHILS % (AUTO) 71 % (42-75); PLATELET COUNT 233 10^3/uL (130-400); WHITE BLOOD COUNT 6.6 10^3/uL (4.3-11.0)
[2022-06-14] MEDS ORDERED: MIDAZOLAM 2 MG/2 ML (VERSED) VIAL ONE (07:16)
[2022-06-14] MEDS ORDERED: ONDANSETRON 4 MG/2 ML (SDV) Z0FRAN ONE (07:20)
[2022-06-14] MEDS ORDERED: LIDOCAINE/EPI 2% 1:200,00 (XYLOCAINE) 20 ML VIAL ONE (07:20)
[2022-06-14] MEDS ORDERED: fentaNYL INJ 100 MCG/2 ML AMP ONE (07:20)
--- NOTE | 2022-06-14 08:05 | Anesthesia-General Post-Op ---
MAC Patient Condition Mental Status/LOC: Same as Preop Cardiovascular: Satisfactory Nausea/Vomiting: Absent Respiratory: Satisfactory Pain: Controlled Complications: Absent Post Op Complications Complications None Follow Up Care/Instructions Patient Instructions None needed. Anesthesiology Discharge Order Discharge Order Patient is doing well, no complaints, stable vital signs, no apparent adverse anesthesia problems. No complications reported per nursing. GILLIAN BARAHONA CRNA Jun 14, 2022 08:05
[2022-06-14] MEDS ORDERED: KETOROLAC 30 MG/ML VIAL ONE (08:14)
[2022-06-14] MEDS ORDERED: morphine INJ 10 MG/ML 1ML (SYR OR VIAL) IVP ONE (08:15)
[2022-06-14] MEDS ORDERED: MEPERIDINE (DEMEROL) INJ 50 MG/ML IVP ONE (08:15)
--- NOTE | 2022-06-14 20:45 | OPERATIVE REPORT ---
DATE OF SERVICE: 06/14/2022 PREOPERATIVE DIAGNOSES: Vaginal/labial mass of the vagina DICTATION ENDS HERE. Job ID: [id number] DocumentID: [id number] Dictated Date: 06/14/2022 13:20:29 [employer] Date: 06/14/2022 20:45:04 Dictated By: SHELTON NAIR MD
--- NOTE | 2022-06-14 21:09 | OPERATIVE REPORT ---
DATE OF SERVICE: 06/14/2022 PREOPERATIVE DIAGNOSIS: Vaginal and labial mass. POSTOPERATIVE DIAGNOSIS: Vaginal and labial mass with pathology pending. OPERATIVE PROCEDURE: Partial vaginectomy and partial vulvectomy. OPERATIVE DESCRIPTION: With the patient in supine position under satisfactory general anesthesia/monitored airway anesthesia. The patient's right labia majora and distal vagina were infiltrated with 1% lidocaine with epinephrine for additional pain control and postoperative pain control. The patient had a large 2 x 3 cm mass under the hymenal ring and extending out into the labia on the right side of the opening of the vagina. This area over the labia was infiltrated with lidocaine as well as the vaginal wall. An incision was made in the wall of the vagina elliptically around the inner aspect of this mass and then an incision was made just outside the hymenal ring to allow for complete dissection and removal of the larger of the two masses. Dissection was carried under the mass to remove it intact. With the distal vagina, mass dissected free. Attention was turned to the right labial mass. There was a nodular firm subcutaneous mass in the inferior margin of the right labia majora. This was excised by incising around this lesion and extended the incisions to allow this to Coalesce with the vaginal incision defect. That tissue was labeled appropriately and sent to pathology separately. The deep tissue was closed in the labia and para vaginal tissue with 3-0 Vicryl Rapide suture. That suture was used to close the defect for above the vaginal surgery and the labial surgery in a running baseball stitch. Good hemostasis was achieved. Good reapproximation was achieved as well. The patient seemed to tolerate the procedure well under MAC anesthesia. Sponge and needle counts were correct on completion of the procedure. The patient's urinary bladder was drained with Mello catheter on completion of the procedure. Blood loss was maybe 50 to 70 mL. The patient tolerated the procedure well and was uneventfully, awakened and transferred to recovery room in stable condition with plans for discharge home PAR. Job ID: [id number] DocumentID: [id number] Dictated Date: 06/14/2022 13:24:22 Pipe Line Walker Date: 06/14/2022 21:08:41 Dictated By: SHELTON NAIR MD [email or web address]
== END 2022-06-14 09:08 | disposition home or self-care (01) ==
LOC: SDC 06:14
PROVIDERS: ATTEND Obstetrics & Gynecology
DX: D18.09 Hemangioma of other sites (principal); L72.0 Epidermal cyst; Z87.891 Personal history of nicotine dependence
CPT/HCPCS: 36415; 85025; 87081

== ENCOUNTER → 2022-10-25 | Outpatient (CLI) | payer MEDICARE | LOC: CARD 11:09 | PROVIDERS: ATTEND Family Medicine | DX: R00.9 Unspecified abnormalities of heart beat (principal) | CPT/HCPCS: 93005 ==

== ENCOUNTER → 2022-12-03 | Outpatient (CLI) | payer MEDICARE | LOC: CARD 08:39 | PROVIDERS: ATTEND Family Medicine | DX: R00.2 Palpitations (principal) | CPT/HCPCS: 93225; 93226 ==